=== PATIENT | male | born 1955 | race African-American/Black ===

== ENCOUNTER → 2017-11-14 | Outpatient (CLI) | payer OTHER, BC ==
[~2017-11-14] MED LIST: ADVAIR 500-501 EACH INH; ALBUTEROL SUL5 MG/ML IH; ALBUTEROL2.5 MG/31 IH; ALLOPURINOL 30300 M2 PO; ALLOPURINOL 30300 M3 PO; AMPYRA10 MG PO; ASA81BEC PO; ASPIR 8181 MG PO; ASTELIN30 ML NS; AVODART0.5 MG PO; BACLOFEN 10MG T10 M1 PO; BACLOFEN20 MG PO; CENTRUM COMPLE1 EACH PO; CENTRUM SILVER1 EAC4 PO; CLARITIN-D 121 EACH PO; DILTIAZEM ER180 M1 PO; DIOVAN160 MG PO; DITROPAN XL5 MG PO; EFFIENT10 MG PO; FIBER0.52 G1 PO; FINASTERIDE5 MG PO; FISH OIL 1,0001 EAC7 PO; FISH OIL 1,001000 M2 PO; FLOMAX PO; FLONASE 0.05%50 MCG NASAL; FUROSEMIDE 40 M40 MG PO; GLYCOLAX POWDER17 GM PO; HYDROCODONE-AP1 EA15 PO; INDOMETHACIN 2525 MG PO; JALYN 0.5-0.41 EACH PO; LASIX 40 MG TAB40 MG PO; LIPITOR 20 MG T20 M1 PO; LISINOPRIL40 MG PO; LORCET PLUS 7.51 TA1 PO; MECLIZINE HCL12.5 MG PO; MIRALAX17 GM PO; NIASPAN 500 MG500 M1 PO; PREDNISONE 10 M10 MG PO; SINGULAIR 10 MG10 M1 PO; SINGULAIR 10 MG10 MG PO; SPIRIVA INH; SYSTANE ULTRA 010 ML OPHTHALMIC; TAMSULOSIN HCL0.4 MG PO; TOVIAZ4 MG PO; VENTOLIN17 GM INH; VITAMIN D3400 UNIT PO; ZETIA10 MG PO; ZOCOR 20 MG TAB20 M1 PO; ZYRTEC10 MG PO
== END ==
LOC: RAD 08:27
DX: J92.9 Pleural plaque without asbestos (principal)

== ENCOUNTER → 2017-12-27 | Outpatient (CLI) | payer OTHER, BC ==
--- NOTE | ~2017-12-27 | 2DMMODE ---
[facility] [place] [address] 2 D/M-MODE ECHOCARDIOGRAM Name: WOODY JORDAN Room #: REG [facility]#: [id number] Admission: 12/27/17 Attend Phys: Philip Tomas MD Discharge: Date of : 53 Date of Service: 12/27/17 1033 Report #: [id number] THIS REPORT FOR: //name// APPROVED REPORT Study performed: 12/27/2017 09:08:30 EXAM: Comprehensive 2D, Doppler, and color-flow Echocardiogram Patient Location: Out-Patient Status: routine BSA: 2.32 HR: 82 bpm BP: 148/92 mmHg Rhythm: NSR Other Information Study Quality: Adequate Technically limited study due to body habitus. Indications CAD. Hx: Stent, HTN, HLP, COPD 2D Dimensions RVDd: 40.64 mm LVEF(%): 41.36 (>50%) IVSd: 12.40 (7-11mm) LVOT Diam: 22.66 (18-24mm) LVDd: 49.36 mm PWd: 8.11 (7-11mm) Ascending Ao: 34.62 (22-36mm) LVDs: 39.34 (25-40mm) Aortic Root: 36.96 mm Carl's LVEF: 41.36 % Volumes Left Atrial Volume (Systole) Single Plane 4CH: 39.08 mL Single Plane 2CH: 59.19 mL LA ESV Index: 22.00 mL/m2 Aortic Valve AoV Peak Thierno.: 1.15 m/s AO Peak Gr.: 5.31 mmHg LVOT Max P.36 mmHg LVOT Max V: 1.04 m/s HOLLI Vmax: 3.65 cm2 Mitral Valve E/A Ratio: 0.5 [facility] [place] [address] 2 D/M-MODE ECHOCARDIOGRAM Name: STEFFANY JORDANHANIEL Room #: REG [facility].#: [id number] Admission: 12/27/17 Attend Phys: Philip Tomas MD Discharge: Date of : 53 Date of Service: 12/27/17 1033 Report #: [id number] MV Decel. Time: 140.97 ms MV E Max Thierno.: 0.56 m/s MV A Thierno.: 1.04 m/s MV PHT: 40.88 ms IVRT: 101.50 ms Pulmonary Valve PV Peak Thierno.: 0.88 m/s PV Peak Gr.: 3.10 mmHg Pulmonary Vein P Vein S: 0.58 m/s P Vein A: 0.36 m/s P Vein D: 0.43 m/s P Vein A Dur.: 152.2 msec P Vein S/D Ratio: 1.35 Tricuspid Valve RAP Estimate: 5.00 mmHg Left Ventricle The left ventricle is normal size. Regional wall motion abnormalities are noted. Mild concentric left ventricular hypertrophy. Left ventricular systolic function is normal. LVEF is 50-55%. Mild diastolic dysfunction is present (impaired relaxation pattern). Right Ventricle Right ventricle is not well visualized but appears grossly normal. Atria The left atrium size is normal. The right atrium size is normal. Aortic Valve The aortic valve is normal in structure. No aortic regurgitation is present. There is no aortic valvular stenosis. Mitral Valve The mitral valve is normal in structure. Mild mitral regurgitation. Tricuspid Valve The tricuspid valve is normal in structure. There is no tricuspid valve regurgitation noted. Unable to assess PA pressure. Pulmonic Valve The pulmonary valve is normal in structure. Trace pulmonic [facility] [address] [place] [address] 2 D/M-MODE ECHOCARDIOGRAM Name: WOODY JORDAN Room #: REG [facility]#: [id number] Admission: 12/27/17 Attend Phys: Philip Tomas MD Discharge: Date of : 53 Date of Service: 12/27/17 1033 Report #: [id number] regurgitation. Great Vessels Aortic root measures at the upper limits of normal. The ascending aorta is normal in size. IVC is normal in size and collapses >50% with inspiration. Pericardium There is no pericardial effusion. <Conclusion> The left ventricle is normal size. Mild concentric left ventricular hypertrophy. Left ventricular systolic function is normal. Mild diastolic dysfunction is present (impaired relaxation pattern). Right ventricle is not well visualized but appears grossly normal. The left atrium size is normal. The aortic valve is normal in structure. Mild mitral regurgitation. <ELECTRONICALLY SIGNED> By: Philip Tomas MD 12/27/17 1033 103 Philip Tomas MD /INF
== END ==
LOC: CV 07:29
DX: I51.7 Cardiomegaly (principal); I34.0 Nonrheumatic mitral (valve) insufficiency; I25.10 Atherosclerotic heart disease of native coronary artery without angina pectoris; I10 Essential (primary) hypertension; E78.5 Hyperlipidemia, unspecified; J44.9 Chronic obstructive pulmonary disease, unspecified